=== PATIENT | female | born 1970 | race Caucasian/White ===

== ENCOUNTER 2016-08-09 04:31 | Observation (INO) | payer OTHER ==
--- NOTE | ~2016-08-09 | DS ---
Discharge Summary [place] [id number] [place]. [address] NAME: STEPHEN QUIROGA : 74 STATUS : DIS Myles PAT#: [id number] AGE: 46 ADM/REG DATE : 08/09/16 MR#: [id number] REPORT SERV DATE: 08/11/16 DICTATED BY: SEAMUS DREW DATE: 08/10/16 REPORT STATUS : Draft TRANSCRIBED BY: MODL DATE: 08/10/16 ADMISSION DATE: 08/09/2016 DISCHARGE DATE: 08/10/2016 PRINCIPAL DIAGNOSIS: Complex migraine with associated aphasia and left-sided paresis. HISTORY OF PRESENT ILLNESS: Please see Dr. Brothers's dictation on 08/09/2016. HOSPITAL COURSE: Admitted with left-sided weakness, aphasia, and severe headache. Negative CT. Negative MRI. Negative stroke workup entirely consistent with a complex migraine. Seen by Neurology who agreed with the assessment. She was started on the Topamax 25 mg at bedtime after actually NSAIDs. She had no further headaches, no further symptoms. Was able to be released on 08/10/2016 in satisfactory condition. Following up with Dr. Deandra Adler in one to two weeks. She is also advised to talk with Dr. Adler regarding her metrorrhagia which had emerged recently and hormonal changes may have precipitated these headaches. FRANCA/GERBER Seamus Drew M.D. / [id number] CC: DO DEANDRA Wolfe MD
--- NOTE | ~2016-08-09 | CN ---
Consultation Report [facility] [address] [place]. [address] NAME: STEPHEN QUIROGA : 74 STATUS : ADM Myles PAT#: [id number] AGE: 46 ADM/REG DATE : 08/09/16 MR#: [id number] REPORT SERV DATE: 08/09/16 DICTATED BY: BRAULIO NEELY DATE: 08/09/16 REPORT STATUS : Draft TRANSCRIBED BY: MODFabián DATE: 08/09/16 NEUROLOGY CONSULTATION DATE OF CONSULTATION: 08/09/2016 REASON FOR CONSULTATION: TIA. PRIMARY CARE PHYSICIAN: Dr. Charlotte Adler. HOSPITALIST: Byron López Jr, MD. HISTORY OF PRESENT ILLNESS: The patient is a 46-year-old female, who came into the emergency department early this morning with complaints of left-sided facial numbness, left arm numbness and weakness, expressive aphasia, and severe headache. The patient mentions that at 7:30 last night, she had a sudden onset of numb fingers in the left hand and left arm numbness and weakness. Her mentions that at this time, she had difficulty "getting words out." She did not have any slurred speech, however. The patient also mentions that she had a big "bright spot" in her left visual field. These symptoms lasted approximately 30 to 40 minutes and then resolved. At 11:00 p.m., she started to have a severe bifrontal headache. She had a pounding and sharp stabbing headache. She had associated nausea and vomiting but could not recall if she had light or sound sensitivity. Her headache did not seem to relent, so she decided to come to the emergency room for further evaluation and treatment. The patient mentions that she is in the middle of her menstrual cycle, and she also has never had a history of migraines. She does mention, however, that her sister has severe migraine headaches. PAST MEDICAL HISTORY: None. PAST SURGICAL HISTORY: Lipoma resection, breast augmentation x2, and wisdom teeth removal. HOME MEDICATION LIST: None. ALLERGIES: NONE. SOCIAL HISTORY: The patient is . She has no children. She is self-employed as a nanny. She will occasionally smoke and occasionally partake in alcohol. She denies the use of recreational drugs. FAMILY HISTORY: The patient's mother is alive, she is 66 and has no health problems. Her father is alive, he is 69 and is suffering from mild dementia. She has one sister who has a history of migraine headaches. REVIEW OF SYSTEMS: For pertinent positives, please refer to HPI. Consultation Report [place] [address] [place]. [address] NAME: STEPHEN QUIROGA : 74 STATUS : ADM Myles PAT#: [id number] AGE: 46 ADM/REG DATE : 08/09/16 MR#: [id number] REPORT SERV DATE: 08/09/16 DICTATED BY: BRAULIO NEELY DATE: 08/09/16 REPORT STATUS : Draft TRANSCRIBED BY: GERBER DATE: 08/09/16 PHYSICAL EXAMINATION: GENERAL: The patient is a 46-year-old female, who stands 5 feet tall and weighs 112 pounds. VITAL SIGNS: She is currently afebrile. Heart rate is 60, respiratory rate 16, O2 saturations on room air are 98%, and blood pressure is 150/57. NEUROLOGIC: The patient is alert. She is oriented x4. Communicates appropriately. Speech is clear. Language is fluent. Cranial nerves II through XII are intact. There is no reported diminished sensation comparing the left and the right side. [id number]-oatr, no ataxia. Llvf-vy-sjdh, no ataxia. No pronator drift. No dysmetria. No tremor. Upper extremity strength is 5/5. DTRs are 1+ bilaterally. No reported sensory deficits comparing the left arm and hand to the right arm and hand. Lower extremity strength is 5/5. Patellar and Achilles reflexes are 2+ bilaterally. Downgoing toes. No reported sensory deficits. NECK: No carotid bruits, JVD, or thyromegaly. CHEST: Lung sounds are clear. CARDIAC: Regular rate and rhythm with a grade 1/6 systolic murmur. LABORATORY DATA: CBC shows a white count of 17.2 (elevated). BMP is normal. Chest x-ray, no acute changes. No sign of pneumonia. CT of the brain, no acute changes. ASSESSMENT AND PLAN: 1. Possible transient ischemic attack. The patient has no risk factors for transient ischemic attack or stroke, however, except she does smoke occasionally. At this point, the patient will undergo an MRI of the brain and an MRA of the head and neck. She will also have an echocardiogram with bubble study. She will be placed on aspirin 81 mg p.o. daily, and additional lab work will be checked, which will include a hemoglobin A1c and fasting lipid panel. 2. Probable complicated migraine. The patient is currently on her menstrual cycle, and she does have a sister who has severe migraines. The patient will be started on Topamax 25 mg p.o. at bedtime for preventative measures. She will be instructed to take nonsteroidal anti-inflammatories plus Zofran for abortive therapy. The patient is not a candidate for Triptan since her migraine is complicated and this puts her at risk for stroke. She will follow up with Neurology on an outpatient basis. 3. Leukocytosis, etiology unknown. A Procalcitonin will be checked along with a urinalysis. The patient shows no meningeal signs on physical exam. Thank you for including us in consultation. JACK/GERBER WILDA Madison- / [id number] Consultation Report [address] [address] NAME: STEPHEN QUIROGA : 74 STATUS : ADM Myles PAT#: [id number] AGE: 46 ADM/REG DATE : 08/09/16 MR#: [id number] REPORT SERV DATE: 08/09/16 DICTATED BY: BRAULIO NEELY DATE: 08/09/16 REPORT STATUS : Draft TRANSCRIBED BY: GERBER DATE: 08/09/16 CC: Byron López Jr, MD
--- NOTE | ~2016-08-09 | HP ---
History And Physical [facility] [address] [facility] [place]. [address] NAME: STEPHEN BURTON : 74 STATUS : ADM Myles PAT#: [id number] AGE: 46 ADM/REG DATE : 08/09/16 MR#: [id number] REPORT SERV DATE: 08/09/16 DICTATED BY: ENEDELIA PELAYO DATE: 08/09/16 REPORT STATUS : Draft TRANSCRIBED BY: MODFabián DATE: 08/09/16 DATE OF ADMISSION: 08/09/2016 POINT OF ENTRY: [facility] Emergency Department. CHIEF COMPLAINT: Headaches, left arm and facial numbness and tingling. HISTORY OF PRESENT ILLNESS: Ms. Burton is a 46-year-old female with no significant previous medical history, who developed the acute onset of left-sided facial numbness, tingling, as well as left arm facial numbness and tingling, expressive aphasia, and severe headache. The patient states that for the past few days she was having some mild headaches which is abnormal for her. She does not have any significant headache history. She had been having some lower extremity cramping which is normal for her as she is currently menstruating. It began approximately 0 on the evening of the . She developed the acute onset of left sided facial numbness and tingling, primarily located around her eye as well as left upper extremity and left hand numbness and tingling. Around that same time, she developed what she felt was having troubles getting what she wanted to say out. Family with her denied any dysarthria or troubles understanding what she was saying; however, she states that she felt she just could not get everything that she wanted to say out. These symptoms lasted approximately 30 minutes and then completely resolved. Later that night as she was going to bed she developed a severe sharp stabbing headache in the mid portion of her forehead preventing her from being able to sleep. Shortly after that, she developed some nausea and vomiting as well as some recurrent left hand numbness and tingling which also resolved again after a few minutes. She continued to have nausea and vomiting on the way here. Initial evaluation in the emergency department notable for CT scan of the brain that was unremarkable. Labs including chest x-ray, also unremarkable except for a white count of 17,200. She initially was treated with some Tylenol and Motrin, which did not seem to have any effect on her headache. She was then treated with a cocktail of Reglan, Toradol, and Benadryl, which seemed to significantly improve her headache. Again, other than the preceding mild headache for the past few days as well as lower extremity cramping. She also does endorse some lower extremity weakness, which is unusual for her. She denies any recent fevers, night sweats, chills, chest pain, palpitations, shortness of breath, cough, sputum production, abdominal pain, diarrhea, constipation, dysuria, melena, hematochezia, hemoptysis, or hematemesis. REVIEW OF SYSTEMS: Comprehensive review of systems otherwise negative unless listed in history of present illness. PREVIOUS MEDICAL HISTORY: None. PREVIOUS SURGICAL HISTORY: Lipoma resection. History And Physical [address] [address] NAME: STEPHEN BURTON : 74 STATUS : ADM Myles PAT#: [id number] AGE: 46 ADM/REG DATE : 08/09/16 MR#: [id number] REPORT SERV DATE: 08/09/16 DICTATED BY: ENEDELIA PELAYO DATE: 08/09/16 REPORT STATUS : Draft TRANSCRIBED BY: GERBER DATE: 08/09/16 ALLERGIES: NO KNOWN DRUG ALLERGIES. HOME MEDICATIONS: She takes no home medications. SOCIAL HISTORY: Occasional social alcohol intake as well as occasional tobacco intake, nothing regular. Denies any illicits. FAMILY HISTORY: Parents and siblings are otherwise healthy. She does have a sister with a history of migraine headaches as well as maternal grandmother with history of stroke. LABS AND IMAGIN. White count is 17.2, hemoglobin 13.1, hematocrit 37.5, INR is 1.0. 2. Sodium is 141, potassium 3.7, chloride 104, carbon dioxide 26, BUN 18, creatinine 0.91, glucose is 100, calcium is 8.6, magnesium 1.9. 3. Troponin less than 0.02. 4. Chest x-ray per my review shows no acute cardiopulmonary abnormality. 5. EKG per my review shows normal sinus rhythm with no evidence of any acute ischemia or infarction. Does have some mildly prolonged QT of 506. 6. CT scan of the brain shows no acute intracranial abnormality. PHYSICAL EXAMINATION: VITAL SIGNS: Temperature is 98.7 degrees Fahrenheit, pulse is 57, respirations 18, saturating 100% on room air, blood pressure 110/60. GENERAL: The patient is awake, alert, in no acute distress. Resting comfortably in bed. She is a well-developed, well-nourished, female. HEENT: Atraumatic and normocephalic. Moist mucous membranes. Pupils equal, round, reactive to light and accommodation. Extraocular eye movements intact. No scleral icterus. NECK: No jugular venous distention. No carotid bruits. CARDIAC: Regular rate and rhythm. No murmurs, rubs, or gallops. Normal S1, S2. LUNGS: Clear to auscultation bilaterally. No wheezes, rhonchi, or crackles. ABDOMEN: Soft, nontender, nondistended with good bowel sounds. No rebound, guarding, or rigidity. EXTREMITIES: Warm, perfused. No cyanosis, clubbing, or edema. SKIN: Warm and dry. PSYCH: Affect appropriate. NEURO: Alert and oriented x3. Cranial nerves 2 through 12 grossly intact. Speech is normal. Gait is not assessed. ASSESSMENT: Ms. Burton is a 46-year-old female, who developed the acute onset of left facial and upper extremity numbness and tingling with associated expressive aphasia followed by a headache concerning for possible complex migraine headache versus transient ischemic attack. PROBLEM LIST: 1. Complex migraine headache versus transient ischemic attack. 2. Leukocytosis. History And Physical [address] [address] NAME: STEPHEN BURTON : 74 STATUS : ADM Myles PAT#: [id number] AGE: 46 ADM/REG DATE : 08/09/16 MR#: [id number] REPORT SERV DATE: 08/09/16 DICTATED BY: ENEDELIA PELAYO DATE: 08/09/16 REPORT STATUS : Draft TRANSCRIBED BY: MODFabián DATE: 08/09/16 PLAN: 1. TIA versus complex migraine headache. We will give patient full-strength aspirin. We will ask Neurology see the patient in consultation as well as place the patient on the stroke TIA protocol and obtain an MRI/MRA in the morning. 2. Leukocytosis, likely stress response as she is afebrile here with stable vital signs. Chest x-ray was also clear. We will check a urinalysis for completeness. 3. DVT prophylaxis. Lovenox subcu. CODE STATUS: The patient wished to be full code. JUAN C/GERBER Enedelia Pelayo MD / [id number] CC: Deandra Adler
[2016-08-09 04:15] LABS: BASOPHILS 0.1 %; BASOPHILS ABSOLUTE 0.02 10/3/uL (0.0-0.16); EOSINOPHILS 0.3 %; EOSINOPHILS ABSOLUTE 0.05 10/3/uL (0.0-0.53); ER CBC TAT 0 Hrs 08 Mins; HEMATOCRIT 37.5 % (36.0-48.0); HEMOGLOBIN 13.1 g/dL (12.0-16.0); IMMATURE GRANULOCYTES 0.5 %; IMMATURE GRANULOCYTES ABSOLUTE 0.08 10/3/uL (0.0-0.11); LYMPHOCYTES 12.7 %; LYMPHOCYTES ABSOLUTE 2.18 10/3/uL (0.67-4.30); MEAN CORPUS HGB CONC 34.9 g/dL (32.0-36.0); MEAN CORPUSCULAR HEMOGLOB 32.3 pg (26.0-34.0); MEAN CORPUSCULAR VOLUME 92.4 fL (80-100); MEAN PLATELET VOLUME 9.7 fL (9.2-13.0); MONOCYTES 5.9 %; MONOCYTES ABSOLUTE 1.01 10/3/uL (0.21-1.20); NEUTROPHILS 80.5 %; NEUTROPHILS ABSOLUTE 13.85 10/3/uL (2.02-8.40); PLATELET COUNT 372 10/3/uL (150-400); RBC DISTRIBUTION WIDTH 12.2 % (12.0-16.0); RED CELL COUNT 4.06 10/6/uL (4.0-5.6); WHITE BLOOD CELLS 17.2 10/3/uL (4.5-10.5)
[2016-08-09 04:17] LABS: MANUAL DIFF NO %
[2016-08-09 04:30] LABS: BUN (BLOOD UREA NITROGEN) 18 MG/DL (6-23); CALCIUM, SERUM 8.6 MG/DL (8.5-10.4); CHEST PAIN PROFILE TAT 0 Hrs 23 Mins; CHLORIDE, SERUM 104 MMOL/L (96-112); CO2 (CARBON DIOXIDE) 26 MMOL/L (24-34); CREATININE 0.91 MG/DL (0.55-1.02); GFR AFRICAN AMERICAN 89 ML/MIN (>=60); GFR NON AFRICAN AMERICAN 77 ML/MIN (>=60); GLUCOSE, SERUM 100 MG/DL (60-99); POTASSIUM, SERUM 3.7 MMOL/L (3.5-5.3); SODIUM, SERUM 141 MMOL/L (135-148); TROPONIN I <0.02 NG/ML (<0.05)
[2016-08-09] MEDS ORDERED: [UNRECOGNIZED DRUG - REMARK] (05:41)
[2016-08-09 10:02] LABS: FREE T4 1.04 NG/DL (0.76-1.46); ULTRASENSITIVE TSH 0.979 MCIU/ML (0.358-3.740)
[2016-08-09 10:03] LABS: FOLATE 19.6 NG/ML (>5.2)
[2016-08-09 11:15] LABS: CHOL/HDL RATIO(NOT ORDER) 2.5 (0-5); CHOLESTEROL 224 MG/DL (< 200); HDL CHOLESTEROL 90 MG/DL (> 49); LDL CHOLESTEROL 120 MG/DL (< 130); NON-HDL CHOLESTEROL 134 MG/DL (< 160); TRIGLYCERIDE 71 MG/DL (< 150)
[2016-08-09 11:46] LABS: PROCALCITONIN <0.05 ng/mL (<0.5)
[2016-08-09 13:04] LABS: CPK 52 U/L (0-200); TROPONIN I <0.02 NG/ML (<0.05)
[2016-08-09 13:05] LABS: CK-MB 0.9 NG/ML
[2016-08-09 14:14] LABS: ASCORBIC ACID (UR NOT ORDER) NEG (NEG); BILIRUBIN, URINE NEGATIVE (NEG); KETONE, URINE NEGATIVE (NEG); LEUKOCYTE ESTERASE(NOT OR NEG (NEG); WBC (NOT ORDERED) (RFLEX) < 1 (0-5)
[2016-08-09 14:47] LABS: AMPHETAMINES (NOT ORD) NEG (NEG); BARBITURATES (NOT ORDERED NEG (NEG); BENZODIAZEPINES (NOT ORD) NEG (NEG); CANNABINOIDS (THC) NEG (NEG); COCAINE (NOT ORDERED) NEG (NEG); OPIATES NEG (NEG); PHENCYCLIDINE(PCP) NEG (NEG); TRICYCLICS NEG (NEG)
[2016-08-09 21:23] LABS: CK-MB 0.8 NG/ML; CPK 42 U/L (0-200); TROPONIN I <0.02 NG/ML (<0.05)
[2016-08-10 05:53] LABS: BUN (BLOOD UREA NITROGEN) 15 MG/DL (6-23); CALCIUM, SERUM 7.9 MG/DL (8.5-10.4); CHLORIDE, SERUM 112 MMOL/L (96-112); CK-MB 0.7 NG/ML; CO2 (CARBON DIOXIDE) 23 MMOL/L (24-34); CPK 38 U/L (0-200); CREATININE 0.85 MG/DL (0.55-1.02); GFR AFRICAN AMERICAN 97 ML/MIN (>=60); GFR NON AFRICAN AMERICAN 83 ML/MIN (>=60); GLUCOSE, SERUM 89 MG/DL (60-99); POTASSIUM, SERUM 4.1 MMOL/L (3.5-5.3); SODIUM, SERUM 143 MMOL/L (135-148); TROPONIN I <0.02 NG/ML (<0.05)
[2016-08-10] MEDS ORDERED: IBU600 PO (16:44)
[2016-08-10] MEDS ORDERED: TOPAMAX25 PO (16:47)
== END 2016-08-10 17:13 | disposition home or self-care (01) ==
LOC: ER 04:31 → CDU1 06:34 → CDU2 07:13
PROVIDERS: Internal Medicine; Specialist
DX: G43.109 Migraine with aura, not intractable, without status migrainosus (principal); G83.9 Paralytic syndrome, unspecified; D72.829 Elevated white blood cell count, unspecified; F17.210 Nicotine dependence, cigarettes, uncomplicated; Z98.890 Other specified postprocedural states
CPT/HCPCS: 70450; 70544; 70548; 70551-52; 71010; 80048; 80061; 80305; 81001; 82306; 82550; 82553; 82607; 82746; 83036; 83735; 84145; 84439; 84443; 84484; 85025; 85610; 85730; 87804; 93005; 93306; 96374; 96375; 99285; A9270-GY; A9577; G0378; J1200; J1885; J2765